=== PATIENT | male | born 1995 | race Caucasian/White ===

== ENCOUNTER → 2025-02-14 14:35 | Outpatient (CLI) | payer OTHER, SELFPAY ==
--- NOTE | 2025-02-14 14:40 | DI.CT.S_ITS ---
PROCEDURE: CT SHOULDER RIGHT WITHOUT CON INDICATIONS: POST OP - right shoulder TECHNIQUE: Noncontrast 0.75 mm thick sections acquired from the acromioclavicular joint to the inferior scapula, with coronal and sagittal reformatting. COMPARISON: None. FINDINGS: Image quality: Excellent. Bones: No acute fracture or dislocation. 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 There has been presumed reconstruction of the acromioclavicular joint capsule ligaments, as well as the trapezoid and conoid ligaments (3/156-116). The most distal screw for the trapezoid ligament (3/131) and the conoid ligament (3/118) terminate at the coracoclavicular interval without CT evidence of osseous purchase. Additional suture anchor placement between the distal clavicle and coracoid process fixed with endo-buttons in expected position. Joints: Otherwise, the acromioclavicular and glenohumeral joints are preserved. Muscles: Overall muscle bulk is preserved. Tendons: The long head of the biceps tendon contour is present within the bicipital groove. Vessels: No aneurysmal dilatation of the visualized right upper extremity arterial vasculature. Lymph nodes: No right axillary lymphadenopathy. Other soft tissues: Visualized right lung parenchyma within normal limits. IMPRESSION: Status post presumed reconstruction of acromioclavicular joint injury without CT evidence of osseous purchase of the conoid and trapezoid ligament anchors. Please correlate with the surgical note, as the distal most portions of the suture anchors can be obscured on CT. Dictated by: Dallas Angelo M.D. on 02/15/2025 at 8:58 Approved by: Dallas Angelo M.D. on 02/15/2025 at 9:31
== END ==
DX: S43.101D Unspecified dislocation of right acromioclavicular joint, subsequent encounter (principal); Z96.698 Presence of other orthopedic joint implants; X58.XXXA Exposure to other specified factors, initial encounter
CPT/HCPCS: 73200